=== PATIENT | male | born 1960 | race Caucasian/White ===

== ENCOUNTER 2017-03-24 11:43 | Inpatient (IN) | payer OTHER ==
[2017-03-24 14:23] VITALS: BMI 18.4
--- NOTE | 2017-03-24 16:26 | HP ---
CIWA Score - CIWA Score Nausea/Vomitin-Mild Nausea/No Vomiting Muscle Tremors: 2 Anxiety: 2 Agitation: 1-Slight > Activity Paroxysmal Sweats: 2 Orientation: 2-Disoriented Date<2 days Tacttile Disturbances: 1-Very Mild Itch/Numbness Auditory Disturbances: 0-None Visual Disturbances: 0-None Headache: 2-Mild CIWA-Ar Total Score: 13 Admission ROS BHS - HPI Chief Complaint: WITHDRAWAL SYMPTOMS Allergies/Adverse Reactions: Allergies Allergy/AdvReac Type Severity Reaction Status Date / Time No Known Allergies Allergy Verified 03/24/17 15:47 History of Present Illness: 56 Y.O. MAN WITH A HISTORY OF ALCOHOL DEPENDENCE IS HERE DETOX. HE REPORTS HE COMPLETED DETOX 6 MONTHS AGO AT [facility]. HE GOES TO [facility] MMTP AND REPORTS LDM ON 03/24/17 WITH 55MG OF METHADONE. DOES NOT HAVE A SIGNIFICANT PERIOD OF SOBRIETY. Exam Limitations: No Limitations - Ebola screening Have you traveled outside of the country in the last 21 days: No Have you had contact with anyone from an Ebola affected area: No Have you been sick,other than usual withdrawal symptoms: No - Review of Systems Constitutional: Chills, Diaphoresis, Loss of Appetite, Unintentional Wgt. Loss EENT: reports: Blurred Vision Respiratory: reports: Shortness of Breath Cardiac: reports: No Symptoms Reported GI: reports: No Symptoms Reported : reports: No Symptoms Reported Musculoskeletal: reports: Back Pain Integumentary: reports: No Symptoms Reported Neuro: reports: Headache, Tingling Endocrine: reports: No Symptoms Reported Hematology: reports: No Symptoms Reported Psychiatric: reports: Judgement Intact, Mood/Affect Appropiate Other Systems: Reviewed and Negative Patient History - Patient Medical History Hx Anemia: No Hx Asthma: No Hx Chronic Obstructive Pulmonary Disease (COPD): No Hx Cancer: No Hx Cardiac Disorders: No Hx Congestive Heart Failure: No Hx Hypertension: No Hx Hypercholesterolemia: No Hx Pacemaker: No HX Cerebrovascular Accident: No Hx Seizures: No Hx Dementia: No Hx Diabetes: No Hx Gastrointestinal Disorders: No Hx Liver Disease: Yes (HCV ) Hx Genitourinary Disorders: No Hx Sexually Transmitted Disorders: No Hx Renal Disease (ESRD): No Hx Thyroid Disease: No Hx Human Immunodeficiency Virus (HIV): Yes (DX 2011) Hx Hepatitis C: Yes (UNTREATED) Hx Depression: No Hx Suicide Attempt: No Hx Bipolar Disorder: No Hx Schizophrenia: No - Patient Surgical History Past Surgical History: No - PPD History Previous Implant?: Yes Documented Results: Negative w/o proof Implanted On Prior R Admission?: No PPD to be Administered?: Yes - Reproductive History Patient is a Female of Child Bearing Age (11 -55 yrs old): No - Smoking Cessation Smoking history: Current every day smoker Have you smoked in the past 12 months: Yes Aproximately how many cigarettes per day: 10 Hx Chewing Tobacco Use: No Initiated information on smoking cessation: Yes 'Breaking Loose' booklet given: 03/24/17 - Substance & Tx. History Hx Alcohol Use: Yes Hx Substance Use: Yes Substance Use Type: Alcohol, Cocaine, Marijuana Hx Substance Use Treatment: Yes (DETOX: 2017 AT [facility] ) - Substances Abused Alcohol Route: Oral Frequency: Daily Amount used: 1 [place] Age of first use: 11 Date of Last Use: 03/24/17 Cocaine Route: Injection Frequency: Daily Amount used: $20-40 Age of first use: 18 Date of Last Use: 03/23/17 Marijuana/Hashish Route: Smoking Frequency: Daily Amount used: $5 Age of first use: 11 Date of Last Use: 03/23/17 Family Disease History - Family Disease History Family Disease History: Diabetes: Mother, Heart Disease: Father Admission Physical Exam S - Vital Signs Vital Signs: Vital Signs - 24 hr 03/24/17 14:16 Temperature 96 F L Pulse Rate 66 Respiratory 20 Rate Blood Pressure 132/74 - Physical General Appearance: Yes: Thin, Sweating, Anxious HEENTM: Yes: Hearing grossly Normal, Normal ENT Inspection, Normocephalic, Normal Voice Respiratory: Yes: Chest Non-Tender, Lungs Clear, Normal Breath Sounds, No Respiratory Distress, No Accessory Muscle Use Neck: Yes: No masses,lesions,Nodules, Trachea in good position Breast: Yes: Breast Exam Deferred Cardiology: Yes: Regular Rhythm, Regular Rate Abdominal: Yes: Normal Bowel Sounds, Non Tender, Flat, Soft Genitourinary: Yes: Within Normal Limits (NO COMPLAINTS REPORTED) Back: Yes: Normal Inspection Musculoskeletal: Yes: Gait Steady, Pelvis Stable Extremities: Yes: Normal Capillary Refill, Normal Inspection, Normal Range of Motion, Non-Tender Neurological: Yes: oral and maxillofacial surgery II-XII NML intact, Alert, Normal Response Integumentary: Yes: Normal Color, Dry, Warm, Track [place] Lymphatic: Yes: Within Normal Limits - Diagnostic (1) HIV disease Current Visit: Yes Status: Chronic (2) Alcohol dependence with uncomplicated withdrawal Current Visit: Yes Status: Chronic (3) Nicotine dependence Current Visit: Yes Status: Chronic (4) Underweight Current Visit: Yes Status: Chronic (5) Opioid dependence on agonist therapy Current Visit: Yes Status: Chronic (6) HCV (hepatitis C virus) Current Visit: Yes Status: Chronic Cleared for Admission [facility] - Detox or Rehab [facility] Level of Care: Medically Managed Detox Regimen/Protocol: Librium [facility] Breath Alcohol Content Breath Alcohol Content: 0 Urine Drug Screen - Results Drug Screen Negative: No Urine Drug Screen Results: THC-Marijuana, SHELLEY-Cocaine, MTD-Methadone
[2017-03-24] MEDS ORDERED: MAGNESIUM HYDROX 2400MG/30ML ORAL SUSPENSION 30 ML CUP PO PRN (16:36)
[2017-03-24] MEDS ORDERED: NICOTINE POLACRILEX 2 MG GUM BC PRN (16:36)
[2017-03-24] MEDS ORDERED: MENTHOL/PHENOL 1 EACH UD MM PRN (16:36)
[2017-03-24] MEDS ORDERED: IBUPROFEN 400 MG TABLET (FP) PO PRN (16:36)
[2017-03-24] MEDS ORDERED: MAG HYDROX/AL HYDROX/SIMETH 30 ML UNIT-DOSE CUP PO PRN (16:36)
[2017-03-24] MEDS ORDERED: ACETAMINOPHEN 325 MG TABLET (FP) PO PRN (16:36)
[2017-03-24] MEDS ORDERED: guaiFENesin/D-METHORPHAN HB 10 ML UNIT-DOSE CUPS PO PRN (16:36)
[2017-03-24] MEDS ORDERED: P-EPHED 60MG/TRIPROLIDI 2.5MG TABLET PO PRN (16:36)
[2017-03-24] MEDS ORDERED: MAGNESIUM CITRATE 300 ML BOTTLE PO PRN (16:36)
[2017-03-24] MEDS ORDERED: chlordiazePOXIDE HCL 25 MG CAPSULE PO PRN (16:36)
[2017-03-24] MEDS ORDERED: chlordiazePOXIDE HCL 25 MG CAPSULE PO ONE (17:45)
[2017-03-24] MEDS ORDERED: cloNIDine HCL 0.1 MG TABLET PO ONE (21:20)
[2017-03-24] MEDS: THIAMINE HCL 100 MG TABLET (FP) PO SCH (22:13)
[2017-03-24] MEDS: chlordiazePOXIDE HCL 25 MG CAPSULE PO SCH (22:14)
[2017-03-24] MEDS: hydrOXYzine PAMOATE 50 MG CAPSULE (FP) PO PRN (22:16)
[2017-03-24 23:19] LABS: URINE APPEARANCE CLEAR; URINE BILIRUBIN NEGATIVE (NEGATIVE); URINE BLOOD NEGATIVE (NEGATIVE); URINE COLOR YELLOW; URINE GLUCOSE (UA) NEGATIVE (NEGATIVE); URINE KETONE NEGATIVE (NEGATIVE); URINE LEUK ESTERASE NEGATIVE (NEGATIVE); URINE NITRITE NEGATIVE (NEGATIVE); URINE PROTEIN NEGATIVE (NEGATIVE); URINE UROBILINOGEN NEGATIVE mg/dL (0.2-1.0)
[2017-03-25] MEDS: chlordiazePOXIDE HCL 25 MG CAPSULE PO SCH ×4 (05:59→23:01)
[2017-03-25] MEDS: NICOTINE 14 MG/24 HOURS TOPICAL PATCH TD SCH (10:30)
[2017-03-25] MEDS: PRENATAL VITAMINS W/ FOLIC ACID TABLET (FP) PO SCH (10:30)
[2017-03-25] MEDS ORDERED: PNEUMOC 13-VAL CONJ-DIP CRM/PF 0.5 ML DISP.SYRIN IM ONE (12:00)
[2017-03-25 12:36] LABS: HEMATOCRIT 36.1 % (35.4-49); HEMOGLOBIN 12.1 GM/dL (11.7-16.9); MCH 29.8 pg (25.7-33.7); MCHC 33.5 g/dl (32.0-35.9); MEAN CELL VOLUME 88.8 fl (80-96); MEAN PLT VOLUME 8.6 fl (7.5-11.1); PLATELET COUNT 140 K/MM3 (134-434); RBC 4.07 M/mm3 (4.00-5.60); RDW 13.9 % (11.9-15.9); WHITE BLOOD COUNT 4.8 K/mm3 (4.0-10.0)
[2017-03-25 12:50] LABS: CHLORIDE 107 mmol/L (98-107); POTASSIUM 3.8 mmol/L (3.5-5.1); SODIUM 139 mmol/L (136-145)
[2017-03-25 12:58] LABS: ALK PHOS 85 U/L (45-117); ANION GAP 4 (8-16); BILIRUBIN,TOTAL 0.4 mg/dL (0.2-1.0); BLOOD UREA NITROGEN 17 mg/dL (7-18); CO2 28 mmol/L (21-32); CREATININE 0.8 mg/dL (0.7-1.3); GLUCOSE,RANDOM 98 mg/dL (74-106); SGOT/AST 21 U/L (15-37); SGPT/ALT 20 U/L (12-78)
[2017-03-25] MEDS ORDERED: PNEUMOCOCCAL 23 VACCINE 0.5 ML VIAL IM ONE (14:00)
--- NOTE | 2017-03-25 16:56 | PN ---
[facility] CIWA - CIWA Score Nausea/Vomitin-No Nausea/No Vomiting Muscle Tremors: 3 Anxiety: 4-Mod. Anxious/Guarded Agitation: 2 Paroxysmal Sweats: 3 Orientation: 2-Disoriented Date<2 days Tacttile Disturbances: 0-None Auditory Disturbances: 0-None Visual Disturbances: 3-Moderate Sensitivity Headache: 0-None Present CIWA-Ar Total Score: 17 BHS Progress Note (SOAP) Subjective: Diarrhea, Stomach Cramping, Body Aches, Tremors, Sweating. Objective: PT. A & O X 2 (UNCERTAIN ABOUT CURRENT DAY / DATE). PT. OBSERVED AMBULATING ON UNIT. NO ACUTE DISTRESS. 03/25/17 16:53 Vital Signs Temperature 98.3 F 03/25/17 14:40 Pulse Rate 74 03/25/17 14:40 Respiratory Rate 20 03/25/17 14:40 Blood Pressure 119/71 03/25/17 14:40 O2 Sat by Pulse Oximetry (%) Laboratory Tests 03/24/17 03/25/17 03/25/17 21:20 07:50 07:50 WBC 4.8 RBC 4.07 Hgb 12.1 Hct 36.1 MCV 88.8 MCH 29.8 MCHC 33.5 RDW 13.9 Plt Count 140 MPV 8.6 Sodium 139 Potassium 3.8 Chloride 107 Carbon Dioxide 28 Anion Gap 4 L BUN 17 Creatinine 0.8 Creat Clearance w eGFR > 60 Random Glucose 98 Calcium 8.0 L Total Bilirubin 0.4 AST 21 ALT 20 Alkaline Phosphatase 85 Total Protein 7.0 Albumin 3.0 L Urine Color Yellow Urine Appearance Clear Urine pH 5.0 Ur Specific [place] 1.018 Urine Protein Negative Urine Glucose (UA) Negative Urine Ketones Negative Urine Blood Negative Urine Nitrite Negative Urine Bilirubin Negative Urine Urobilinogen Negative Ur Leukocyte Esterase Negative RPR Titer 03/25/17 07:50 WBC RBC Hgb Hct MCV MCH MCHC RDW Plt Count MPV Sodium Potassium Chloride Carbon Dioxide Anion Gap BUN Creatinine Creat Clearance w eGFR Random Glucose Calcium Total Bilirubin AST ALT Alkaline Phosphatase Total Protein Albumin Urine Color Urine Appearance Urine pH Ur Specific [place] Urine Protein Urine Glucose (UA) Urine Ketones Urine Blood Urine Nitrite Urine Bilirubin Urine Urobilinogen Ur Leukocyte Esterase RPR Titer Nonreactive LABS NOTED. Assessment: 03/25/17 16:54 WITHDRAWAL SYMPTOMS. Plan: CONTINUE DETOX. PRN IMMODIUM FOR DIARRHEA. INCREASE DAILY PO FLUID INTAKE.
[2017-03-25] MEDS: THIAMINE HCL 100 MG TABLET (FP) PO SCH (23:02)
[2017-03-26] MEDS: chlordiazePOXIDE HCL 25 MG CAPSULE PO SCH ×3 (05:27→17:26)
[2017-03-26] MEDS: LOPERAMIDE HCL 2 MG CAPSULE PO PRN ×2 (06:40→15:33)
[2017-03-26] MEDS ORDERED: METHADONE HCL 10 MG TABLET PO ONE (06:50)
--- NOTE | 2017-03-26 06:54 | PN ---
BHS Progress Note Note: methadone 30 mg po x 1 dose now pending mmtp dose verification on 03/27/17. utox + mtd
[2017-03-26] MEDS: PRENATAL VITAMINS W/ FOLIC ACID TABLET (FP) PO SCH (10:21)
[2017-03-26] MEDS: NICOTINE 14 MG/24 HOURS TOPICAL PATCH TD SCH (10:21)
--- NOTE | 2017-03-26 11:11 | EKG ---
Test Reason : Blood Pressure : / mmHG Vent. Rate : 067 BPM Atrial Rate : 067 BPM P-R Int : 174 ms QRS Dur : 098 ms QT Int : 458 ms P-R-T Axes : 084 108 061 degrees QTc Int : 483 ms NORMAL SINUS RHYTHM RIGHTWARD AXIS PULMONARY DISEASE PATTERN PROLONGED QT ABNORMAL ECG NO PREVIOUS ECGS AVAILABLE Confirmed by HELEN BAILEY MD ([id number]) on 03/26/2017 11:11:15 AM Referred By: Confirmed By:HELEN BAILEY MD
--- NOTE | 2017-03-26 16:27 | PN ---
S Progress Note (SOAP) Subjective: ALERT,IRRITABLE,ANXIOUS,INTERRUPTED SLEEP Objective: 03/26/17 16:25 Vital Signs Temperature 97.3 F L 03/26/17 13:49 Pulse Rate 77 03/26/17 13:49 Respiratory Rate 18 03/26/17 13:49 Blood Pressure 128/73 03/26/17 13:49 O2 Sat by Pulse Oximetry (%) Assessment: 03/26/17 16:25 WITHDRAWAL SYMPTOM Plan: CONTINUE DETOX,PATIENT STATED HE IS ON MMTP,NO VERIFICATION,TO VERIFY PATIENT METHADONE PROGRAM IN AM
[2017-03-26] MEDS: chlordiazePOXIDE 5 MG CAPSULE PO SCH (22:49)
[2017-03-26] MEDS: THIAMINE HCL 100 MG TABLET (FP) PO SCH (22:49)
[2017-03-26] MEDS: hydrOXYzine PAMOATE 50 MG CAPSULE (FP) PO PRN (22:52)
[2017-03-27] MEDS: chlordiazePOXIDE 5 MG CAPSULE PO SCH ×2 (05:53→11:10)
[2017-03-27] MEDS ORDERED: DIPHENOXYLATE 2.5/ATROPINE.025 1 COMBO TABLET PO PRN (06:07)
[2017-03-27] MEDS ORDERED: METHADONE HCL 10 MG TABLET PO ONE (06:45)
[2017-03-27] MEDS: NICOTINE 14 MG/24 HOURS TOPICAL PATCH TD SCH (11:10)
[2017-03-27] MEDS: PRENATAL VITAMINS W/ FOLIC ACID TABLET (FP) PO SCH (11:10)
--- NOTE | 2017-03-27 14:24 | DS ---
[facility] Detox Discharge Summary Admission Date: 03/24/17 Discharge Date: 03/27/17 - History Present History: Alcohol Dependence, Opioid Dependence, MMTP Additional Comments: PATIENT DOES NOT WISH TO STAY TO COMPLETE DETOX REGIMEN. RISKS OF LEAVING DETOX UNIT AGAINST MEDICAL ADVICE AND PRIOR TO COMPLETION OF DETOX REGIMEN EXPLAINED TO PATIENT. PATIENT ADVISED TO GO IMMEDIATELY TO NEAREST ER SHOULD ANY INTOLERABLE DETOX SYMPTOMS DEVELOP AT ANY TIME. PATIENT LEFT DETOX UNIT IN STABLE MEDICAL CONDITION. Pertinent Past History: MMTP, Nicotine Dependence, Underweight, Hep C, HIV. - Physical Exam Results Vital Signs: Vital Signs Temperature 98.6 F 03/27/17 14:08 Pulse Rate 74 03/27/17 14:08 Respiratory Rate 16 03/27/17 14:08 Blood Pressure 119/78 03/27/17 14:08 O2 Sat by Pulse Oximetry (%) Pertinent Admission Physical Exam Findings: WITHDRAWAL SYMPTOMS. Laboratory Tests 03/24/17 03/25/17 03/25/17 21:20 07:50 07:50 WBC 4.8 RBC 4.07 Hgb 12.1 Hct 36.1 MCV 88.8 MCH 29.8 MCHC 33.5 RDW 13.9 Plt Count 140 MPV 8.6 Sodium 139 Potassium 3.8 Chloride 107 Carbon Dioxide 28 Anion Gap 4 L BUN 17 Creatinine 0.8 Creat Clearance w eGFR > 60 Random Glucose 98 Calcium 8.0 L Total Bilirubin 0.4 AST 21 ALT 20 Alkaline Phosphatase 85 Total Protein 7.0 Albumin 3.0 L Urine Color Yellow Urine Appearance Clear Urine pH 5.0 Ur Specific [place] 1.018 Urine Protein Negative Urine Glucose (UA) Negative Urine Ketones Negative Urine Blood Negative Urine Nitrite Negative Urine Bilirubin Negative Urine Urobilinogen Negative Ur Leukocyte Esterase Negative RPR Titer 03/25/17 07:50 WBC RBC Hgb Hct MCV MCH MCHC RDW Plt Count MPV Sodium Potassium Chloride Carbon Dioxide Anion Gap BUN Creatinine Creat Clearance w eGFR Random Glucose Calcium Total Bilirubin AST ALT Alkaline Phosphatase Total Protein Albumin Urine Color Urine Appearance Urine pH Ur Specific [place] Urine Protein Urine Glucose (UA) Urine Ketones Urine Blood Urine Nitrite Urine Bilirubin Urine Urobilinogen Ur Leukocyte Esterase RPR Titer Nonreactive LABS NOTED. - Medication Discharge Medications: Ambulatory Orders NK [No Known Home Medication] 03/24/17 - Diagnosis (1) Alcohol dependence with uncomplicated withdrawal Current Visit: Yes Status: Acute (2) HCV (hepatitis C virus) Current Visit: Yes Status: Chronic Qualifiers: Viral hepatitis chronicity: chronic Hepatic coma status: without hepatic coma Qualified Code(s): B18.2 - Chronic viral hepatitis C (3) HIV disease Current Visit: Yes Status: Chronic (4) Nicotine dependence Current Visit: Yes Status: Chronic Qualifiers: Nicotine product type: cigarettes Substance use status: uncomplicated Qualified Code(s): F17.210 - Nicotine dependence, cigarettes, uncomplicated (5) Opioid dependence on agonist therapy Current Visit: Yes Status: Chronic (6) Underweight Current Visit: Yes Status: Chronic - AMA Did Patient Leave Against Medical Advice: Yes (PATIENT DOES NOT WISH TO STAY TO COMPLETE DETOX REGIMEN.)
[2017-03-27 15:44] VITALS: BP 107/71; PULSE 52; TEMP 97
[2017-03-27] MEDS ORDERED: chlordiazePOXIDE HCL 10 MG CAPSULE PO SCH (23:00)
== END 2017-03-27 10:35 | disposition left against medical advice (07) | DRG 894 ==
LOC: YASAS 11:43 → Y3N 16:54
PROVIDERS: ADMIT Internal Medicine; ATTEND Internal Medicine
PROC: HZ2ZZZZ Detoxification Services for Substance Abuse Treatment (ICD-10-PCS; principal; 2017-03-24)
DX: F10.230 Alcohol dependence with withdrawal, uncomplicated (principal); F11.20 Opioid dependence, uncomplicated; Z68.1 Body mass index [BMI] 19.9 or less, adult; F12.20 Cannabis dependence, uncomplicated; F17.210 Nicotine dependence, cigarettes, uncomplicated; Z21 Asymptomatic human immunodeficiency virus [HIV] infection status; B18.2 Chronic viral hepatitis C; R63.6 Underweight
CPT/HCPCS: 36415; 80053; 81003; 85027; 86593; 93005; 93010; J0735